=== PATIENT | female | born 1975 | race Hispanic/Latino ===

== ENCOUNTER → 2023-01-28 | Day surgery (SDC) | payer OTHER ==
[~2023-01-28] MED LIST: LACTATED RINGER'S 1,000 ML BAG IV ONE; LIDOCAINE HCL 2% LOCAL INJ 5 ML SDV VIAL INJ ONE; PROPOFOL IV EMULSION 10 MG/ML 20 ML VIAL ONE
[2023-01-28 10:42] VITALS: TEMP 98.4
[2023-01-28 10:55] VITALS: BP 121/79; PULSE 83; RESP 18; O2SAT 98
== END | disposition home or self-care (01) ==
LOC: OR 09:20
PROVIDERS: ATTEND Internal Medicine Gastroenterology
DX: Z12.11 Encounter for screening for malignant neoplasm of colon (principal); D12.2 Benign neoplasm of ascending colon; K63.5 Polyp of colon; K64.8 Other hemorrhoids
CPT/HCPCS: 45384; 81025; J2001; J2704; J7121